=== PATIENT | female | born 2000 | race Caucasian/White ===

== ENCOUNTER 2018-07-06 10:28 | Emergency (ER) | payer BC ==
[2018-07-06] MEDS ORDERED: NS 1,000 ML IV ONE (10:50)
--- NOTE | 2018-07-06 10:52 | EDPHY ---
H & P Stated Complaint: abdominal pain that started this morning Time Seen by Provider: 07/06/18 10:37 HPI/ROS: CHIEF COMPLAINT: Abdominal pain, "my left ovary hurts" HISTORY OF PRESENT ILLNESS: 18-year-old female woke this morning with diffuse abdominal pain, notes a cramping sensation that seem to start in her right the right side of her abdomen fall the general distribution of her large intestine. She notes recent constipation, had a small hard bowel movement last evening after having not had a bowel movement for several days prior to this. Took MiraLax last evening. Denies history of abdominal surgeries. Denies nausea or vomiting. Denies melena hematochezia. Denies urinary abnormality. Denies back or flank pain. Denies fever chills. Denies abdominal or other trauma. PRIMARY CARE PROVIDER: REVIEW OF SYSTEMS: 10 systems reviewed and negative with the exception of the elements mentioned in the history of present illness PAST MEDICAL & SURGICAL HISTORY: IUD. No history of abdominal surgeries SOCIAL HISTORY:Student PHYSICAL EXAM (Prior to examination, patient consented to physical exam, hands were washed and my usual and customary physical exam procedures followed) 1) GENERAL: Well-developed, well-nourished, alert and oriented. Appears uncomfortable. During the course my exam she describes intermittent waves of diffuse abdominal cramping 2) HEAD: Normocephalic, atraumatic 3) HEENT: Pupils equal, round, reactive to light bilaterally. Sclera anicteric. Nasopharynx, oropharynx, clear, no lesions. Moist Mucous membranes. 4) NECK: Full range of motion, no meningeal signs. 5) LUNGS: Clear auscultation bilaterally, no wheezes, no rhonchi, no retractions. 6) HEART: Regular rate and rhythm, no murmur, no heave, no gallop. 7) ABDOMEN: tender to palpation left lower quadrant, no focal tenderness, negative McBurney's, negative Burnette's, negative Rovsing's, negative peritoneal sign, no distension 8) MUSCULOSKELETAL: Moving all extremities, no focal areas of tenderness, no obvious trauma. No peripheral edema or discoloration. 9) BACK: No CVA tenderness, no midline vertebral tenderness, no fluctuance, no step-off, no obvious trauma, no visual or palpable abnormality. 10) SKIN: No rash, no petechiae. 11) Psychiatric: Patient is oriented X 3, there is no agitation. DIFFERENTIAL DIAGNOSIS: My differential diagnosis includes, but is not limited to, acute appendicitis, acute cholecystitis, constipation, bowel obstruction, acute pancreatitis, ovarian torsion, ectopic , gastritis. The patient understands that this diagnosis is provisional and can never be 100% accurate. This is a partial list of diagnoses considered. These considerations are based on history, physical exam, past history and reassessment. - Personal History LMP (Females 10-55): IUD In Place Current Tetanus Diphtheria and Acellular Pertussis (TDAP): Yes - Medical/Surgical History Hx Asthma: No Hx Chronic Respiratory Disease: No Hx Diabetes: No Hx Cardiac Disease: No Hx Renal Disease: No Hx Cirrhosis: No Hx Alcoholism: No Hx HIV/AIDS: No Hx Splenectomy or Spleen Trauma: No Other PMH: toncilectomy 07/2017 - Social History Smoking Status: Never smoked Constitutional: Initial Vital Signs Temperature (C) 36.7 C 07/06/18 10:31 Heart Rate 93 07/06/18 10:31 Respiratory Rate 16 07/06/18 10:31 Blood Pressure 99/66 L 07/06/18 10:31 O2 Sat (%) 99 07/06/18 10:31 O2 Delivery Mode Room Air Allergies/Adverse Reactions: No Known Allergies Allergy (Unverified 07/06/18 10:30) Home Medications: Medication Instructions Recorded Peg 3350/Na Sulf,Bicarb,Cl/KCl 1,000 ml PO ONCE #4000 ml 07/06/18 [Golytely (RX)] Medical Decision Making - Diagnostics Imaging Results: Imaging Impressions Abdomen X-Ray 07/06/18 10:49 Impression: 1. No significant abnormality within the abdomen. Pelvic/Renal Ultrasound 07/06/18 10:50 Impression: 1. Normal ovaries. No ovarian cyst or torsion. No free fluid. 2. IUD in place. Right sidearm minimally penetrates into the myometrium. Findings discussed with Emergency Department physician, Vincenzo Hastings PA-C on July 06, 2018 at 1214 hours. Images reviewed myself ED Course/Re-evaluation: 12:20 p.m.: Re-evaluation. Discussed her laboratory studies and imaging results. Re-examined her abdomen which is soft no guarding no rebound. Specifically , no McBurney's point pain, no left lower quadrant pain. We discussed next steps, including discharge home CT imaging now. At this time I think that acute appendicitis, acute diverticulitis are less than likely in this patient I do not think that the benefits of CT imaging outweigh the risks. Nonetheless this has been offered to the patient and her father and they are in agreement to not think is indicated. We discussed possibility of constipation. Given her history of no bowel movement several days followed by a small bowel movement last evening with awaking with a cramping sensation following the distribution of her large intestine, I think that constipation is more than likely this patient at this time. I have discharged patient with a an enema steak home as well as GoLYTELY. We had a lengthy discussion about return precautions and provided her my usual and customary return precautions and stressed the importance of close follow-up if she develops new or worsening symptoms. She feels comfortable being discharged. - Data Points Laboratory Results: Laboratory Results 07/06/18 10:46 07/06/18 10:46 07/06/18 07/06/18 07/06/18 10:46 10:46 10:46 WBC 7.39 10^3/uL 10^3/uL (3.80-9.50) RBC 4.95 10^6/uL 10^6/uL (4.18-5.33) Hgb 15.7 g/dL g/dL (12.6-16.3) Hct 45.0 % % (38.0-47.0) MCV 90.9 fL fL (81.5-99.8) MCH 31.7 pg pg (27.9-34.1) MCHC 34.9 g/dL g/dL (32.4-36.7) RDW 11.7 % % (11.5-15.2) Plt Count 307 10^3/uL 10^3/uL (150-400) MPV 9.8 fL fL (8.7-11.7) Neut % (Auto) 58.0 % % (39.3-74.2) Lymph % (Auto) 32.7 % % (15.0-45.0) Roane % (Auto) 6.9 % % (4.5-13.0) Eos % (Auto) 1.2 % % (0.6-7.6) Baso % (Auto) 0.7 % % (0.3-1.7) Nucleat RBC Rel Count 0.0 % % (0.0-0.2) Absolute Neuts (auto) 4.28 10^3/uL 10^3/uL (1.70-6.50) Absolute Lymphs (auto) 2.42 10^3/uL 10^3/uL (1.00-3.00) Absolute Monos (auto) 0.51 10^3/uL 10^3/uL (0.30-0.80) Absolute Eos (auto) 0.09 10^3/uL 10^3/uL (0.03-0.40) Absolute Basos (auto) 0.05 10^3/uL 10^3/uL (0.02-0.10) Absolute Nucleated RBC 0.00 10^3/uL 10^3/uL (0-0.01) Immature Gran % 0.5 % % (0.0-1.1) Immature Gran # 0.04 10^3/uL 10^3/uL (0.00-0.10) Sodium 139 mEq/L mEq/L (135-145) Potassium 3.7 mEq/L mEq/L (3.5-5.2) Chloride 104 mEq/L mEq/L (97-110) Carbon Dioxide 24 mEq/l mEq/l (22-31) Anion Gap 11 mEq/L mEq/L (6-14) BUN 12 mg/dL mg/dL (7-23) Creatinine 0.7 mg/dL mg/dL (0.6-1.0) Estimated GFR > 60 Glucose 77 mg/dL mg/dL (70-100) Calcium 9.7 mg/dL mg/dL (8.5-10.4) Total Bilirubin 0.5 mg/dL mg/dL (0.1-1.4) Conjugated Bilirubin 0.3 mg/dL mg/dL (0.0-0.5) Unconjugated Bilirubin 0.2 mg/dL mg/dL (0.0-1.1) AST 20 IU/L IU/L (14-46) ALT 21 IU/L IU/L (9-52) Alkaline Phosphatase 79 IU/L IU/L (38-126) Total Protein 7.6 g/dL g/dL (6.3-8.2) Albumin 4.6 g/dL g/dL (3.5-5.0) Lipase 49 IU/L IU/L (23-300) Beta HCG, Qual NEGATIVE Medications Given: Discontinued Medications Sodium Chloride (Ns) 1,000 mls @ 0 mls/hr IV EDNOW ONE; Wide Open PRN Reason: Protocol Stop: 07/06/18 10:51 Last Admin: 07/06/18 11:16 Dose: 1,000 mls Departure - Departure Disposition: Home, Routine, Self-Care Clinical Impression: Acute constipation Abdominal pain Qualifiers: Abdominal location: generalized Qualified Code(s): R10.84 - Generalized abdominal pain Condition: Good Instructions: High Fiber Diet (ED), Fleet Enema (ED), Constipation (ED) Additional Instructions: Seek immediate medical attention if you develop new or worsening symptoms, if you develop fevers, chills, inability to tolerate oral intake or any other symptoms that concerns you. Referrals: ALEXANDER BURRIS [Other] - 1-2 days without fail Prescriptions: Peg 3350/Na Sulf,Bicarb,Cl/KCl [Golytely (RX)] 1,000 ml PO ONCE #4000 ml
[2018-07-06 11:35] LABS: PLATELET COUNT 307 10^3/uL (150-400)
[2018-07-06 12:36] VITALS: BP 108/66
== END 2018-07-06 12:36 | disposition home or self-care (01) ==
DX: K59.00 Constipation, unspecified (principal); R10.84 Generalized abdominal pain; E86.9 Volume depletion, unspecified